=== PATIENT | female | born 1970 | race Caucasian/White ===

== ENCOUNTER 2020-12-20 18:16 | Emergency (ER) | payer OTHER, MEDICARE ==
[~2020-12-20] VITALS: Ht 177.8 cm; Wt 85.5 kg
[~2020-12-20 18:16] MED LIST: AMITRIPTYLINE H10 MG PO; AMITRIPTYLINE H75 M1 PO; AMITRIPTYLINE100 MG PO; AMRIX15 MG PO; ASPIRIN E.C. 8181 MG PO; AUGMENTIN 500 M1 TAB PO; AXERT; B12; BENTYL; BUTALBITAL/APAP1 TA1 PO; CALAN80 MG PO; CELEXA40 MG PO; CEPHALEXIN500 M1 PO; CITALOPRAM HYDR20 MG PO; CITALOPRAM20 MG PO; CLARITIN; CLARITIN 1010 MG/TAB PO; CYCLOBENZAPRINE10 MG PO; DEPAKOTE250 MG PO; DESYREL 50MG50 MG PO; DULCOLAX TAB5 MG PO; ELAVIL100 MG PO; EPITOL100 MG PO; FERROUS SU325 MG/TAB PO; FLEXERIL 1010 MG/TAB PO; FLONASE NASAL S16 GM NS; INDERAL 20MG20 MG PO; LEVOTHROID0.125 MG PO; LEVOTHYROXIN0.175 MG PO; LEVOTHYROXINE0.2 MG PO; LEVOXYL0.175 MG PO; LIORESAL 1010 MG/TAB PO; LIPITOR 10MG10 MG PO; LISINOPRIL/HCTZ1 TAB PO; LISINOPRIL10 MG PO; LORTAB 5/500 501 TAB PO; MASON NATURAL2000 IU PO; MAXALT10 MG PO; MEPERIDINE HCL50 MG PO; MEPERIDINE HYDR50 MG PO; MOBIC 7.5MG7.5 MG PO; MOBIC15 MG PO; MULTIPLE VITAMI1 TA5 PO; NEURONTIN600 MG/TAB PO; NEXIUM40 MG PO; NORCO 325 MG-7.1 TAB PO; OMNICEF 300MG300 MG PO; PERCOCET 500 MG1 TAB PO; PETADOLEX; PHENERGAN 25 TA25 MG PO; PHENERGAN W/CO120 ML PO; RANITIDINE300 MG PO; RYZOLT200 MG PO; TEGRETOL 2200 MG/TA1 PO; TEGRETOL X200 MG/TA1 PO; TOPAMAX 25MG25 M1 PO; TOPAMAX 25MG25 MG PO; TOPAMAX50 MG PO; TOVIAZ8 MG PO; TRAMADOL50 MG PO; TREXIMET PO; TRIAMCINOLONE0.5% TP; TYLENOL 325MG325 MG PO; TYLENOL EXTRA500 M1 PO; ULTRAM 50MG TAB50 MG PO; VERAPAMIL HCL80 MG PO; VERAPAMIL PO; VERELAN240 MG PO; VITAMIN B COMPL1 T16 PO; VITAMIN B-1000 MCG/T PO; VITAMIN B225 MG PO; VOLTAREN GEL1% TP; VOLTAREN1% TP; XANAX0.25 MG PO; ZESTORETIC 12.51 TAB PO; ZOFRAN 4MG T4 MG/TAB PO; ZOFRAN 8MG8 MG PO; ZONEGRAN 100MG100 MG PO
[2020-12-20 18:25] VITALS: TEMP 98.4
[2020-12-20 19:55] VITALS: BP 120/65; PULSE 58
== END 2020-12-20 19:56 | disposition home or self-care (01) ==
LOC: COL.ER 18:16
DX: S70.01XA Contusion of right hip, initial encounter (principal); S60.221A Contusion of right hand, initial encounter; S80.02XA Contusion of left knee, initial encounter; G43.909 Migraine, unspecified, not intractable, without status migrainosus; W11.XXXA Fall on and from ladder, initial encounter; Y92.009 Unspecified place in unspecified non-institutional (private) residence as the place of occurrence of the external cause
CPT/HCPCS: J1885

== ENCOUNTER 2021-11-10 15:40 | Observation (INO) | payer OTHER, MEDICARE ==
[~2021-11-10] VITALS: Ht 177.8 cm; Wt 91.8 kg
[~2021-11-10 15:40] MED LIST changes: +CENTRUM1 TA1 PO; -MULTIPLE VITAMI1 TA5 PO
[2021-11-10 16:18] VITALS: BP 114/57; PULSE 66; TEMP 98.7
--- NOTE | 2021-11-10 17:00 | NUR ---
UPON ARRRIVAL TO THE FLOOR ADMISSION COMPLETED. THE PATIENT IS AWARE SHE IS HERE FOR A COLONOSCOPY SCHEDULED FOR TOMORROW AT 1030. SHE WILL BOWEL PREP HERE DUE TO HER MEDICAL HISTORY. THE PATIENT TOLERATED IV START WELL. NO OTHER CONCERNS WITH THIS PATIENT.
[2021-11-10] MEDS ORDERED: AJOVY AUTO225 MG/1.5 SQ (18:06)
[2021-11-10] MEDS ORDERED: IMURAN 50MG TAB50 MG PO (18:08)
[2021-11-10] MEDS ORDERED: B-121000 MCG PO (18:09)
[2021-11-10] MEDS ORDERED: CYMBALTA 20MG20 MG PO (18:10)
[2021-11-10] MEDS ORDERED: CITRACAL-D3 ER1 EACH PO (18:11)
[2021-11-10] MEDS ORDERED: COLACE 100100 MG/CAP PO (18:12)
[2021-11-10] MEDS ORDERED: CULTURELLE WOM1 EACH PO (18:13)
[2021-11-10] MEDS ORDERED: MAG-OX 400400 MG/TAB PO (18:15)
[2021-11-10] MEDS ORDERED: MELATONIN5 M1 SL (18:16)
[2021-11-10] MEDS ORDERED: DITROPAN 5MG TAB5 MG PO (18:18)
[2021-11-10] MEDS ORDERED: PROTONIX 40MG T40 MG PO (18:19)
[2021-11-10] MEDS ORDERED: REQUIP 0.5MG0.5 MG PO (18:20)
[2021-11-10] MEDS ORDERED: LYRICA200 MG PO (18:20)
[2021-11-10] MEDS ORDERED: SENOKOT8.6 MG PO (18:21)
[2021-11-10] MEDS ORDERED: MIRALAX PA17 GM/Dose PO (18:24)
--- NOTE | 2021-11-10 19:00 | NUR ---
REPORT GIVEN TO NORMA RAMOS.
[2021-11-10 20:09] VITALS: BP 133/73; PULSE 54; TEMP 97.4
--- NOTE | 2021-11-10 22:34 | NUR ---
Patient assessed around 2100. Alert and oriented, and able to make needs known. Denies pain. Patient cold, but room was blowing cold air. Patient moved from room 353 to 352. Denies any further questions, needs, or concerns at this time. Patient has completed her bowel prep. In recliner with call light within reach. Did not want to take Melatonin tonight.
[2021-11-10 23:41] VITALS: BP 109/68; PULSE 57; TEMP 98
[2021-11-11] VITALS (8 sets, daily range): BP systolic 109–116; BP diastolic 65–72; PULSE 49–61; TEMP 97.6–98.6
--- NOTE | 2021-11-11 05:55 | NUR ---
Patient reports she has been having liquid stools. Has been NPO since midnight. Denies nausea and upset stomach. Had been up most of the night, and stated she is tired this morning, but no further complaints. Consent is on the chart. Voices no questions, needs, or concerns at this time. In bed with call light within reach.
--- NOTE | 2021-11-11 09:43 | NUR ---
Assessment completed, alert/oriented, vital signs stable, denies pain or discomfort, bowel prep was successfull and patient is having clear liquid stool at this point, consent signed and has been NPO for Colonoscopy, she denies other needs at this time
--- NOTE | 2021-11-11 10:04 | NUR ---
Initial visit; Patient thanked Dowel Inspector for looking in on her and offering God's blessings.
--- NOTE | 2021-11-11 10:13 | NUR ---
Emery Grinder met with patient to discuss discharge planning. Patient lives in [place] with her , Valeriy (ph#[phone]) [address] sees Dr. Pierre for primary care. Patient obtains medications from [facility] in [place] or from [facility]. Patient has a wheelchair, walker, and cane available if needed and uses them depending on the day. Patient reports she has an MS diagnosis and is normally independent with ADLS. Patient would like to complete DPOA-HC while she is here. SW assisted patient in completing the form. Patient chose to designate her , Valeriy and son, Johnny. YAMILA and NORMA Curiel provided witness signature. YAMILA provided original and copies to patient then placed copy in patient's chart. Patient plans to return home at time of discharge. Discharge Plan: Home
--- NOTE | 2021-11-11 13:49 | NUR ---
Arrived back from Colonoscopy at this time, alert/oriented, vital sgins stable
--- NOTE | 2021-11-11 20:00 | NUR ---
Initial shift assessment done- no requests, drinking the go lytely bowel prep, states stools are brown and liquid-- instructed to have nurse look at results so I can inform the doctor-- pt states understanding,, states has chronic pain- getting her home dose of lyrica tonight- Up to bathroom , steady on feet.
--- NOTE | 2021-11-11 21:30 | NUR ---
Dr ward did call for update on bowel prep/ pt understands to call nurse for stool to observe- I have not seen any stool yet- will order some Miralax to use during the night is pt is not clear by 2300 luca-
--- NOTE | 2021-11-11 23:30 | NUR ---
Miralax prep started at this time- pt did finish all of the golytely,, stool is gark green liquid at this time-npo after MN except for prep
[2021-11-12] VITALS (7 sets, daily range): BP systolic 94–118; BP diastolic 49–72; PULSE 48–56; TEMP 97.6–98.1
--- NOTE | 2021-11-12 06:45 | NUR ---
Talked with Dr. Key, stool is light green with sediment/clear, consent signed. Did complete the entire golytely bowel prep 2200, and then completed the entire Miralax bowel prep by 0200.
--- NOTE | 2021-11-12 07:40 | NUR ---
To endoscopy at this time.
--- NOTE | 2021-11-12 08:54 | NUR ---
Back to room from endoscopy. Post op vitals initiated. Denies pain/nausea/shortness of breath. Assessment complete. Denies current needs. Call light in reach. Will monitor.
--- NOTE | 2021-11-12 11:45 | NUR ---
Discharge instructions given both verbal and handwritten. Discussed s/s of infection/follow up appts/home medications. INT to right hand DCd-cath intact. Escorted off floor in wheelchair by ROCHELLE Palacio in stable condition.
== END 2021-11-12 11:53 | disposition home or self-care (01) ==
LOC: MEDICAL 15:40 → SDCO 15:40 → MEDICAL 15:58 → SDCO 11-11 11:00 → MEDICAL 11-11 12:46 → SDCO 11-11 15:15 → MEDICAL 11-12 11:53
PROVIDERS: ADMIT Internal Medicine Gastroenterology
DX: K59.2 Neurogenic bowel, not elsewhere classified (principal); I10 Essential (primary) hypertension; E03.9 Hypothyroidism, unspecified; N31.9 Neuromuscular dysfunction of bladder, unspecified; G35 Multiple sclerosis; E78.5 Hyperlipidemia, unspecified; D50.9 Iron deficiency anemia, unspecified; F32.A Depression, unspecified; F41.9 Anxiety disorder, unspecified; G43.909 Migraine, unspecified, not intractable, without status migrainosus; Z79.899 Other long term (current) drug therapy; Z79.82 Long term (current) use of aspirin
CPT/HCPCS: OP; 99231-AI; G0378; J2704; J7030; J7500

== ENCOUNTER → 2023-08-14 | Outpatient (CLI) | payer OTHER, MEDICARE ==
[~2023-08-14] MED LIST changes: +AJOVY AUTO225 MG/1.5 SQ; +B-121000 MCG PO; +CITRACAL-D3 ER1 EACH PO; +COLACE 100100 MG/CAP PO; +CULTURELLE WOM1 EACH PO; +CYMBALTA 20MG20 MG PO; +DITROPAN 5MG TAB5 MG PO; +IMURAN 50MG TAB50 MG PO; +LYRICA200 MG PO; +MAG-OX 400400 MG/TAB PO; +MELATONIN5 M1 SL; +MIRALAX PA17 GM/Dose PO; +PROTONIX 40MG T40 MG PO; +REQUIP 0.5MG0.5 MG PO; +SENOKOT8.6 MG PO
== END ==
LOC: COL.RAD 13:28
DX: M51.36 Other intervertebral disc degeneration, lumbar region (principal); M51.37 Other intervertebral disc degeneration, lumbosacral region; M47.816 Spondylosis without myelopathy or radiculopathy, lumbar region; M47.817 Spondylosis without myelopathy or radiculopathy, lumbosacral region; M71.38 Other bursal cyst, other site